=== PATIENT | male | born 1950 | race African-American/Black ===

== ENCOUNTER 2023-02-21 17:37 | Observation (INO) | payer MEDICARE, SELFPAY ==
[2023-02-21] MEDS ORDERED: Adenosine 6 MG/2 ML VIAL ONE (17:50)
[2023-02-21 18:10] LABS: #Eosinphils 0.1 thou/uL (0.0-0.7); #Monocytes 0.7 thou/uL (0.11-0.59); #Neutrophils 3.1 thou/uL (1.40-6.50); %Basophils 0.3 % (0.0-1.0); %Eosinophils 1.5 % (0.0-10.0); %Lymphocytes 36.3 % (21.0-51.0); %Monocytes 11.1 % (0.0-10.0); %Neutrophils 50.6 % (42.0-75.0); Hematocrit 41.9 % (42.0-52.0); Hemoglobin 13.4 g/dL (14.0-18.0); Mean Corpuscular Hemoglobin 28.6 pg (27.0-31.0); Mean Corpuscular Volume 89.3 fl (78.0-98.0); Mean Platelet Volume 10.7 fL (7.4-10.4); Platelet Count 144 10x3/uL (130-400); Red Blood Cell (RBC) Count 4.69 mill/uL (4.70-6.10); White Blood Cell (WBC) Count 6.2 10x3/uL (4.8-10.8)
[2023-02-21 18:23] LABS: PTT 32.4 sec (22.9-36.1); Prothrombin Time 13.5 sec (12.0-14.7)
[2023-02-21 18:31] LABS: Globulin 3.9 g/dL (2.4-3.5)
[2023-02-21 18:36] LABS: Troponin I 0.138 ng/mL (< 0.028)
[2023-02-21 18:51] LABS: ALT (SGPT) 8 U/L (8-55); AST (SGOT) 14 U/L (5-34); Albumin 4.2 g/dL (3.4-4.8); Alkaline Phosphatase 107 U/L (40-110); Anion Gap 19 mmol/L (10-20); BUN (Urea Nitrogen) 17 mg/dL (8.4-25.7); Bilirubin, Total 0.6 mg/dL (0.2-1.2); Calc. Creatinine Clearance 0 mL/min (70-130); Calcium 9.9 mg/dL (7.8-10.44); Carbon Dioxide 27 mmol/L (23-31); Chloride 95 mmol/L (98-107); Estimated GFR 12; Glucose 114 mg/dL (80-115); Magnesium 1.8 mg/dL (1.6-2.6); Potassium 3.4 mmol/L (3.5-5.1); Protein, Total 8.1 g/dL (5.8-8.1); Sodium 138 mmol/L (136-145)
[2023-02-21 21:35] VITALS: BMI 24.9
[2023-02-21] MEDS ORDERED: Potassium Chloride 20 MEQ TAB PO SCH (21:45)
[2023-02-21] MEDS ORDERED: Magnesium 2 GM/50 ML(in water) 2 GM in Premix Bag 1 BAG IVPB SCH (21:45)
[2023-02-21 22:43] LABS: Lactic Acid 2.9 mmol/L (0.5-2.2)
[2023-02-22 00:17] LABS: Troponin I 0.256 ng/mL (< 0.028)
[2023-02-22 02:06] LABS: #Eosinphils 0.1 thou/uL (0.0-0.7); #Monocytes 0.7 thou/uL (0.11-0.59); #Neutrophils 3.9 thou/uL (1.40-6.50); %Basophils 0.5 % (0.0-1.0); %Eosinophils 1.9 % (0.0-10.0); %Lymphocytes 22.9 % (21.0-51.0); %Monocytes 11.7 % (0.0-10.0); Hematocrit 40.1 % (42.0-52.0); Hemoglobin 12.6 g/dL (14.0-18.0); Mean Corpuscular HGB CONC 31.4 g/dL (32.0-36.0); Mean Corpuscular Hemoglobin 28.3 pg (27.0-31.0); Mean Corpuscular Volume 90.1 fl (78.0-98.0); Mean Platelet Volume 11.4 fL (7.4-10.4); Platelet Count 132 10x3/uL (130-400); Red Blood Cell (RBC) Count 4.45 mill/uL (4.70-6.10); White Blood Cell (WBC) Count 6.2 10x3/uL (4.8-10.8)
[2023-02-22 02:39] LABS: Anion Gap 16 mmol/L (10-20); BUN (Urea Nitrogen) 25 mg/dL (8.4-25.7); Calc. Creatinine Clearance 13 mL/min (70-130); Calcium 9.4 mg/dL (7.8-10.44); Carbon Dioxide 26 mmol/L (23-31); Chloride 100 mmol/L (98-107); Estimated GFR 10; Glucose 111 mg/dL (80-115); Potassium 4.1 mmol/L (3.5-5.1); Sodium 138 mmol/L (136-145)
[2023-02-22 02:41] LABS: Troponin I 0.503 ng/mL (< 0.028)
[2023-02-22 06:24] LABS: Troponin I 0.614 ng/mL (< 0.028)
[2023-02-22] MEDS ORDERED: Amiodarone 200 MG TAB PO SCH ×2 (10:15→21:00)
[2023-02-22] MEDS: Heparin 5,000 UNITS/ML VIAL SC SCH ×3 (10:23→20:48)
[2023-02-22 11:12] LABS: Critical Call Chem Troponin I PREV HI; Troponin I 0.601 ng/mL (< 0.028)
[2023-02-22] MEDS: Amiodarone 200 MG TAB PO SCH ×2 (14:42→20:48)
[2023-02-23 06:20] LABS: #Eosinphils 0.2 thou/uL (0.0-0.7); #Monocytes 0.5 thou/uL (0.11-0.59); #Neutrophils 3.3 thou/uL (1.40-6.50); %Basophils 0.7 % (0.0-1.0); %Lymphocytes 27.4 % (21.0-51.0); %Monocytes 9.3 % (0.0-10.0); %Neutrophils 59.2 % (42.0-75.0); Hematocrit 41.1 % (42.0-52.0); Hemoglobin 12.6 g/dL (14.0-18.0); Mean Corpuscular HGB CONC 30.7 g/dL (32.0-36.0); Mean Corpuscular Hemoglobin 28.6 pg (27.0-31.0); Mean Corpuscular Volume 93.2 fl (78.0-98.0); Mean Platelet Volume 12.3 fL (7.4-10.4); Platelet Count 127 10x3/uL (130-400); Red Blood Cell (RBC) Count 4.41 mill/uL (4.70-6.10); White Blood Cell (WBC) Count 5.6 10x3/uL (4.8-10.8)
[2023-02-23 06:46] LABS: Phosphorus 3.4 mg/dL (2.3-4.7)
[2023-02-23 07:02] LABS: Calcium 9.9 mg/dL (7.8-10.44); Chloride 100 mmol/L (98-107); Glucose 78 mg/dL (80-115); Potassium 4.1 mmol/L (3.5-5.1); Sodium 136 mmol/L (136-145)
[2023-02-23 07:04] LABS: Anion Gap 19 mmol/L (10-20); Carbon Dioxide 21 mmol/L (23-31)
[2023-02-23 07:06] LABS: Calc. Creatinine Clearance 9 mL/min (70-130); Estimated GFR 7
[2023-02-23 07:07] LABS: BUN (Urea Nitrogen) 38 mg/dL (8.4-25.7)
[2023-02-23 07:34] LABS: Magnesium 2.4 mg/dL (1.6-2.6)
[2023-02-23 09:01] LABS: HBSAg Index 0.26 S/CO (0-0.99); Hep B Surf Ag Non-Reactive S/CO (NonReactive)
[2023-02-23 09:07] LABS: HBSAB Concentration 48.36 mIU/mL; Hep B Surf AB Reactive (NonReactive)
[2023-02-23] MEDS: Amiodarone 200 MG TAB PO SCH (10:27)
[2023-02-23] MEDS: Heparin 5,000 UNITS/ML VIAL SC SCH ×2 (10:29→17:33)
[2023-02-23 16:42] VITALS: BP 105/66; TEMP 98.5
[2023-02-23] MEDS ORDERED: Amiodarone 200 MG TAB PO SCH (17:45)
[2023-02-24] MEDS ORDERED: Amiodarone 200 MG TAB PO SCH (09:00)
== END 2023-02-23 18:50 | disposition home or self-care (01) ==
LOC: ERS 17:37 → 2SW 19:46
PROVIDERS: ADMIT Emergency Medicine; ATTEND Emergency Medicine
DX: I47.1 Supraventricular tachycardia (principal); I13.2 Hypertensive heart and chronic kidney disease with heart failure and with stage 5 chronic kidney disease, or end stage renal disease; I50.22 Chronic systolic (congestive) heart failure; N18.6 End stage renal disease; E87.20 Acidosis, unspecified; E83.42 Hypomagnesemia; E87.6 Hypokalemia; Z86.73 Personal history of transient ischemic attack (TIA), and cerebral infarction without residual deficits; Z99.2 Dependence on renal dialysis; Z79.82 Long term (current) use of aspirin; Z95.810 Presence of automatic (implantable) cardiac defibrillator
CPT/HCPCS: 36415; 71045; 80048; 80053; 83605; 83735; 84100; 84443; 84484; 85025; 85610; 85730; 86706; 87340; 90935; 93005; 93010; 94760; 96361; 96372; 96374; 96375; G0257; G0378; J0153; J1644; J3475

== ENCOUNTER 2024-07-12 19:51 | Inpatient (IN) | payer MEDICARE ==
[2024-07-12 20:47] LABS: #Basophils Less than 0.03 10x3/uL (0.0-0.2); #Eosinophils Less than 0.03 10x3/uL (0.0-0.7); %Basophils 0.1 % (0.0-1.0); %Lymphocytes 2.6 % (21.0-51.0); %Neutrophils 90.2 % (42.0-75.0); Hematocrit 32.9 % (42.0-52.0); Hemoglobin 9.4 g/dL (14.0-18.0); Mean Corpuscular HGB CONC 28.6 g/dL (32.0-36.0); Mean Corpuscular Volume 97.9 fL (78.0-98.0); Mean Platelet Volume 10.7 fL (7.4-10.4); Platelet Count 219 10x3/uL (130-400); RBC Distribution Width 18.4 % (11.5-14.5); Red Blood Cell (RBC) Count 3.36 mill/uL (4.70-6.10)
[2024-07-12 21:07] LABS: Carbon Dioxide Less than 10 mmol/L (23-31)
[2024-07-12 21:08] LABS: Troponin I 0.392 ng/mL (< 0.028)
[2024-07-12] MEDS ORDERED: Albuterol 2.5 MG (3 mL) NEB ONE ×2 (22:00→22:33)
[2024-07-12] MEDS ORDERED: Dextrose 10% in Water 250 ML ONE (22:00)
[2024-07-12] MEDS ORDERED: Calcium Chloride 1 GM/10 ML Abboject SYRINGE ONE (22:00)
[2024-07-12 22:02] LABS: Chloride 108 mmol/L (98-107); Sodium 145 mmol/L (136-145)
[2024-07-12 22:03] LABS: Albumin 3.3 g/dL (3.4-4.8); Calcium 8.7 mg/dL (7.8-10.44)
[2024-07-12] MEDS ORDERED: Sodium Bicarb 50 MEQ/50 ML Abboject 8.4% SYRINGE ONE ×3 (22:03→22:24)
[2024-07-12 22:04] LABS: Globulin 3.9 g/dL (2.4-3.5); Glucose 127 mg/dL (83-110); Protein, Total 7.2 g/dL (5.8-8.1)
[2024-07-12] MEDS ORDERED: Insulin Regular, Human 100 UNIT/ML 10 ML VIAL ONE (22:04)
[2024-07-12] MEDS ORDERED: Dextrose 50% Abboject 50 ML SYRINGE ONE (22:04)
[2024-07-12 22:06] LABS: Bilirubin, Total 1.3 mg/dL (0.2-1.2); Potassium 6.7 mmol/L (3.5-5.1)
[2024-07-12 22:07] LABS: Alkaline Phosphatase 107 U/L (40-110); Calc. Creatinine Clearance 0 mL/min (70-130); Estimated GFR 3
[2024-07-12 22:08] LABS: BUN (Urea Nitrogen) 122 mg/dL (8.4-25.7)
[2024-07-12 22:09] LABS: AST (SGOT) 700 U/L (5-34)
[2024-07-12 22:22] LABS: ALT (SGPT) 404 U/L (8-55)
[2024-07-12 22:33] LABS: Calcium, Ionized (arterial) 1.16 mmol/L (1.12-1.30); Carboxyhemoglobin (COHb) 0.6 gm% (0.0-3.0); Hematocrit-ABG 28 % (42.0-52.0); Hemoglobin (Hb) 9.5 g/dL (14.0-18.0); O2 Tension (PaO2), arterial 572.5 mmHg (> 70.0)
[2024-07-12 22:36] LABS: Actual Bicarbonate (HCO3a) 4.7 mEq/L (22-28); CO2 Tension 19.9 mmHg (35.0-45.0); Potassium - ABG Lab 6.18 mmol/L (3.70-5.30); Puncture Site Left Radial artery
[2024-07-12 22:37] LABS: ALV-art Gradient 115.625 mmHg (0-20)
[2024-07-12] MEDS ORDERED: Furosemide 40 MG (4 mL) VIAL ONE (23:05)
[2024-07-13] MEDS: Sodium Bicarbonate 150 mEq in Dextrose 5% IV SCH (00:27)
[2024-07-13] MEDS ORDERED: Insulin Regular, Human 100 UNIT/ML 10 ML VIAL SC PRN (00:37)
[2024-07-13] MEDS ORDERED: Acetaminophen 325 MG TAB PO PRN (00:40)
[2024-07-13 00:49] LABS: Anion Gap 39 mmol/L (10-20); BUN (Urea Nitrogen) 118 mg/dL (8.4-25.7); Calc. Creatinine Clearance 0 mL/min (70-130); Carbon Dioxide 8 mmol/L (23-31); Chloride 107 mmol/L (98-107); Estimated GFR 3; Glucose 183 mg/dL (83-110); Potassium 6.2 mmol/L (3.5-5.1); Sodium 148 mmol/L (136-145)
[2024-07-13] MEDS: Furosemide 100 MG (10 mL) VIAL SLOW IVP SCH (00:55)
[2024-07-13 01:25] LABS: HBSAB Concentration 29.47 mIU/mL; HBsAg Index 0.33 S/CO (0-0.99); Hep B Core Total Ab NONREACTIVE (NonReactive); Hep B Core Total Index 0.08 S/CO (0-0.79); Hep B Surf AB REACTIVE (NonReactive); Hep B Surf Ag NONREACTIVE S/CO (NonReactive); Hep C IgG Ab NONREACTIVE S/CO (NonReactive); Hep C Index 0.17 S/CO (0-0.79)
[2024-07-13 01:33] VITALS: BMI 29.2
[2024-07-13] MEDS: Albuterol 2.5 MG (3 mL) NEB NEB SCH (02:07)
[2024-07-13] MEDS: Sodium Bicarb 50 MEQ/50 ML Abboject 8.4% SYRINGE IVP SCH (04:18)
[2024-07-13 04:30] LABS: Actual Bicarbonate (HCO3v) 22.3 mEq/L (22-28); Calcium, Ionized (venous) 1.03 mmol/L (1.16-1.32); Chloride (VBG) 100 mmol/L (98-106); Hematocrit-VBG 30 % (42.0-52.0); Hemoglobin (Hb) 10.2 g/dL (12.6-17.4); Potassium (VBG) 3.31 mmol/L (3.70-5.30); Sodium 143 mmol/L (133-146); pH (venous) 7.458 (7.32-7.43)
[2024-07-13 04:32] LABS: #Basophils Less than 0.03 10x3/uL (0.0-0.2); #Eosinophils Less than 0.03 10x3/uL (0.0-0.7); %Basophils 0.1 % (0.0-1.0); %Eosinophils 0.1 % (0.0-10.0); %Lymphocytes 1.7 % (21.0-51.0); %Neutrophils 95.5 % (42.0-75.0); Hematocrit 27.5 % (42.0-52.0); Hemoglobin 9.3 g/dL (14.0-18.0); Mean Corpuscular HGB CONC 33.8 g/dL (32.0-36.0); Mean Corpuscular Hemoglobin 27.8 pg (27.0-31.0); Mean Corpuscular Volume 82.3 fL (78.0-98.0); Mean Platelet Volume 9.9 fL (7.4-10.4); Platelet Count 173 10x3/uL (130-400); RBC Distribution Width 17.3 % (11.5-14.5); Red Blood Cell (RBC) Count 3.34 mill/uL (4.70-6.10)
[2024-07-13 04:57] LABS: ALT (SGPT) 927 U/L (8-55); AST (SGOT) 1529 U/L (5-34); Albumin 3.5 g/dL (3.4-4.8); Alkaline Phosphatase 121 U/L (40-110); Anion Gap 26 mmol/L (10-20); BUN (Urea Nitrogen) 50 mg/dL (8.4-25.7); Bilirubin, Total 1.3 mg/dL (0.2-1.2); Calc. Creatinine Clearance 12 mL/min (70-130); Calcium 8.8 mg/dL (7.8-10.44); Carbon Dioxide 20 mmol/L (23-31); Chloride 102 mmol/L (98-107); Estimated GFR 7; Glucose 135 mg/dL (83-110); Potassium 3.4 mmol/L (3.5-5.1); Protein, Total 7.5 g/dL (5.8-8.1); Sodium 145 mmol/L (136-145)
[2024-07-13] MEDS: Folic Acid/Vit B Comp W-C PO SCH (07:48)
[2024-07-13] MEDS: Aspirin 81 mg Enteric Coated Tablet PO SCH (07:48)
[2024-07-13] MEDS: Famotidine/PF 20 mg/2ml Vial SLOW IVP SCH (07:49)
[2024-07-13] MEDS: Senokot S 8.6-50 MG TAB PO SCH (07:49)
[2024-07-13] MEDS: Heparin 5,000 UNITS/ML VIAL SC SCH (07:50)
[2024-07-13] MEDS: Famotidine 40 MG/5 ML Oral Suspension PER TUBE SCH (07:50)
[2024-07-13] MEDS: Nitroglycerin 2% Ointment 1 INCH/1 GM Packet TOP SCH (07:51)
[2024-07-13 08:14] LABS: #Basophils Less than 0.03 10x3/uL (0.0-0.2); #Eosinophils Less than 0.03 10x3/uL (0.0-0.7); %Basophils 0.1 % (0.0-1.0); %Lymphocytes 2.6 % (21.0-51.0); %Monocytes 4.1 % (0.0-10.0); %Neutrophils 92.4 % (42.0-75.0); Hematocrit 26.5 % (42.0-52.0); Hemoglobin 8.5 g/dL (14.0-18.0); Mean Corpuscular HGB CONC 32.1 g/dL (32.0-36.0); Mean Corpuscular Hemoglobin 27.8 pg (27.0-31.0); Mean Corpuscular Volume 86.6 fL (78.0-98.0); Platelet Count 152 10x3/uL (130-400); RBC Distribution Width 17.8 % (11.5-14.5); Red Blood Cell (RBC) Count 3.06 mill/uL (4.70-6.10)
[2024-07-13 08:24] LABS: Troponin I 0.522 ng/mL (< 0.028)
[2024-07-13 08:25] LABS: Globulin 3.3 g/dL (2.4-3.5)
[2024-07-13] MEDS ORDERED: Heparin 10,000 UNITS/ 10 ML VIAL ONE (09:49)
[2024-07-13 10:35] LABS: Sodium 144 mmol/L (136-145)
[2024-07-13 10:37] LABS: Carbon Dioxide 19 mmol/L (23-31); Chloride 103 mmol/L (98-107)
[2024-07-13 10:38] LABS: Anion Gap 26 mmol/L (10-20); BUN (Urea Nitrogen) 63 mg/dL (8.4-25.7); Calc. Creatinine Clearance 9 mL/min (70-130)
[2024-07-13 10:39] LABS: Calcium 8.3 mg/dL (7.8-10.44); Estimated GFR 5; Glucose 149 mg/dL (83-110)
[2024-07-13 10:40] LABS: Albumin 3.1 g/dL (3.4-4.8); Bilirubin, Total 1.1 mg/dL (0.2-1.2); Protein, Total 6.4 g/dL (5.8-8.1)
[2024-07-13 10:41] LABS: ALT (SGPT) 837 U/L (8-55); AST (SGOT) 1421 U/L (5-34); Alkaline Phosphatase 103 U/L (40-110)
[2024-07-13] MEDS: EPOETIN ALFA-EPBX (ESRD) 4,000 UNITS/ML VIAL SC SCH (12:49)
[2024-07-13] MEDS: EPOETIN ALFA-EPBX (ESRD) 10,000 UNITS/ML VIAL SC SCH (14:22)
[2024-07-13 15:04] LABS: pH, Arterial 6.989 (7.35-7.45)
[2024-07-14 05:42] LABS: #Basophils Less than 0.03 10x3/uL (0.0-0.2); #Eosinophils Less than 0.03 10x3/uL (0.0-0.7); %Basophils 0.1 % (0.0-1.0); %Eosinophils 0.1 % (0.0-10.0); %Lymphocytes 8.4 % (21.0-51.0); %Monocytes 9.3 % (0.0-10.0); %Neutrophils 81.5 % (42.0-75.0); Hematocrit 28.9 % (42.0-52.0); Hemoglobin 9.4 g/dL (14.0-18.0); Mean Corpuscular HGB CONC 32.5 g/dL (32.0-36.0); Mean Corpuscular Hemoglobin 27.9 pg (27.0-31.0); Mean Corpuscular Volume 85.8 fL (78.0-98.0); Mean Platelet Volume 9.8 fL (7.4-10.4); Platelet Count 131 10x3/uL (130-400); Red Blood Cell (RBC) Count 3.37 mill/uL (4.70-6.10)
[2024-07-14 05:58] LABS: ALT (SGPT) 718 U/L (8-55); AST (SGOT) 723 U/L (5-34); Albumin 3.1 g/dL (3.4-4.8); Alkaline Phosphatase 116 U/L (40-110); Anion Gap 25 mmol/L (10-20); BUN (Urea Nitrogen) 73 mg/dL (8.4-25.7); Bilirubin, Total 1.3 mg/dL (0.2-1.2); Calc. Creatinine Clearance 8 mL/min (70-130); Calcium 8.5 mg/dL (7.8-10.44); Carbon Dioxide 20 mmol/L (23-31); Chloride 103 mmol/L (98-107); Estimated GFR 4; Globulin 3.4 g/dL (2.4-3.5); Glucose 71 mg/dL (83-110); Potassium 4.6 mmol/L (3.5-5.1); Protein, Total 6.5 g/dL (5.8-8.1); Sodium 143 mmol/L (136-145)
[2024-07-15 05:14] LABS: #Basophils Less than 0.03 10x3/uL (0.0-0.2); %Basophils 0.1 % (0.0-1.0); %Eosinophils 1.5 % (0.0-10.0); %Monocytes 12.4 % (0.0-10.0); Hematocrit 28.9 % (42.0-52.0); Hemoglobin 9.7 g/dL (14.0-18.0); Mean Corpuscular HGB CONC 33.6 g/dL (32.0-36.0); Mean Corpuscular Volume 83.3 fL (78.0-98.0); Mean Platelet Volume 10.7 fL (7.4-10.4); Platelet Count 134 10x3/uL (130-400); RBC Distribution Width 17.7 % (11.5-14.5); Red Blood Cell (RBC) Count 3.47 mill/uL (4.70-6.10)
[2024-07-15 05:22] LABS: ALT (SGPT) 524 U/L (Less than 45); AST (SGOT) 409 U/L (11-34); Albumin 2.6 g/dL (3.1-4.5); Alkaline Phosphatase 107 U/L (40-110); Anion Gap 19 mmol/L (10-20); BUN (Urea Nitrogen) 47 mg/dL (8.4-25.7); Bilirubin, Total 1.1 mg/dL (0.3-1.2); Calc. Creatinine Clearance 11 mL/min (70-130); Calcium 8.6 mg/dL (7.8-10.44); Carbon Dioxide 23 mmol/L (23-31); Chloride 104 mmol/L (98-107); Estimated GFR 7; Globulin 3.1 g/dL (2.4-3.5); Glucose 83 mg/dL (83-110); Potassium 3.5 mmol/L (3.5-5.1); Protein, Total 5.7 g/dL (5.8-8.1); Sodium 142 mmol/L (136-145)
[2024-07-15] MEDS: Famotidine/PF 20 mg/2ml Vial SLOW IVP SCH (08:35)
[2024-07-15] MEDS: Famotidine 20 MG TAB PO SCH (08:56)
[2024-07-16] MEDS ORDERED: Ipratropium/Albuterol 3 ML NEB ONE (01:14)
[2024-07-16 06:28] LABS: #Basophils Less than 0.03 10x3/uL (0.0-0.2); %Basophils 0.1 % (0.0-1.0); %Eosinophils 2.5 % (0.0-10.0); %Lymphocytes 10.6 % (21.0-51.0); %Monocytes 13.7 % (0.0-10.0); %Neutrophils 72.3 % (42.0-75.0); Hematocrit 29.4 % (42.0-52.0); Hemoglobin 9.4 g/dL (14.0-18.0); Mean Corpuscular Hemoglobin 27.7 pg (27.0-31.0); Mean Corpuscular Volume 86.7 fL (78.0-98.0); Mean Platelet Volume 11.1 fL (7.4-10.4); Platelet Count 145 10x3/uL (130-400); RBC Distribution Width 18.2 % (11.5-14.5); Red Blood Cell (RBC) Count 3.39 mill/uL (4.70-6.10)
[2024-07-16 06:50] LABS: ALT (SGPT) 455 U/L (Less than 45); AST (SGOT) 291 U/L (11-34); Albumin 2.7 g/dL (3.1-4.5); Alkaline Phosphatase 102 U/L (40-110); Anion Gap 18 mmol/L (10-20); BUN (Urea Nitrogen) 56 mg/dL (8.4-25.7); Bilirubin, Total 0.8 mg/dL (0.3-1.2); Calc. Creatinine Clearance 9 mL/min (70-130); Calcium 8.6 mg/dL (7.8-10.44); Carbon Dioxide 23 mmol/L (23-31); Chloride 104 mmol/L (98-107); Estimated GFR 6; Globulin 3.1 g/dL (2.4-3.5); Glucose 87 mg/dL (83-110); Potassium 3.7 mmol/L (3.5-5.1); Protein, Total 5.8 g/dL (5.8-8.1); Sodium 141 mmol/L (136-145)
[2024-07-17 00:37] VITALS: TEMP 98.4
[2024-07-17 09:08] VITALS: BP 134/80
== END 2024-07-17 10:51 | disposition hospice, home (50) | DRG 640 ==
LOC: ERS 19:51 → CCU 23:37 → T4-A 07-13 10:46
PROVIDERS: ADMIT Internal Medicine; ATTEND Internal Medicine
PROC: 5A09357 Assistance with Respiratory Ventilation, Less than 24 Consecutive Hours, Continuous Positive Airway Pressure (ICD-10-PCS; principal; 2024-07-13)
DX: E87.70 Fluid overload, unspecified (principal); I21.A1 Myocardial infarction type 2; N18.6 End stage renal disease; J96.01 Acute respiratory failure with hypoxia; I48.20 Chronic atrial fibrillation, unspecified; I42.8 Other cardiomyopathies; I13.2 Hypertensive heart and chronic kidney disease with heart failure and with stage 5 chronic kidney disease, or end stage renal disease; Z66 Do not resuscitate; D63.1 Anemia in chronic kidney disease; E87.5 Hyperkalemia; E87.20 Acidosis, unspecified; K76.89 Other specified diseases of liver; R79.89 Other specified abnormal findings of blood chemistry; F10.90 Alcohol use, unspecified, uncomplicated; K21.9 Gastro-esophageal reflux disease without esophagitis; Z51.5 Encounter for palliative care; Z91.158 Patient's noncompliance with renal dialysis for other reason; Z86.73 Personal history of transient ischemic attack (TIA), and cerebral infarction without residual deficits; Z95.810 Presence of automatic (implantable) cardiac defibrillator; Z99.2 Dependence on renal dialysis; Z79.899 Other long term (current) drug therapy
CPT/HCPCS: 36415; 36416; 36600; 71045; 80053; 82805; 83880; 84484; 85025; 86704; 86706; 86803; 87340; 90935; 93005; 93306; 94640; 94644; 94660; 96374; 96375; 96376; G0257; J1644; J1815; J1940; J3490; J7070; J7611; J7620; J7999; Q5105